=== PATIENT | female | born 1955 | race Caucasian/White ===

== ENCOUNTER → 2019-01-24 | Outpatient (CLI) | payer OTHER ==
[~2019-01-24] MED LIST: IBUP1TAB15 PO; MULT-1067 PO
--- NOTE | 2019-01-25 11:27 | RADIOLOGY IMAGING REPORT ---
[place]AC[place] [facility] [place] NAME: RENARD RAMOS : [id number] MR: [id number] V: [id number] EXAM DATE: ORDERING PHYSICIAN: KYLIE KAPLAN TECHNOLOGIST: Dana Salazar PROCEDURE:BILATERAL DIGITAL SCREENING MAMMOGRAM WITH CAD ASSISTED INTERPRETATION & 3D TOMOSYNTHESIS COMPARISON:Prior mammograms dated 05/19/17, 04/08/15 INDICATIONS:screening FINDINGS: The breasts are heterogeneously dense which can obscure small masses. The parenchymal pattern has remained stable when allowing for differences in mammographic technique & patient positioning. DIAGNOSTIC CATEGORY 1--NEGATIVE. RECOMMENDATIONS: ROUTINE MAMMOGRAM AND CLINICAL EVALUATION. IMPRESSION: BIRADS 1: Negative. No significant abnormality is seen. Dictated by: Tameka Blackmon M.D. on 01/24/2019 at 16:22 Transcribed by: TITO on 01/25/2019 at 9:37 Approved by: Tameka Blackmon M.D. on 01/25/2019 at 11:25 [facility]
== END ==
LOC: MAMO 08-02 01:38
PROVIDERS: ATTEND Physician Assistant
DX: Z12.31 Encounter for screening mammogram for malignant neoplasm of breast (principal); Z80.3 Family history of malignant neoplasm of breast
CPT/HCPCS: 77063; 77067

== ENCOUNTER 2019-04-18 00:16 | Day surgery (SDC) | payer OTHER ==
[~2019-04-18] VITALS: Ht 172.7 cm; Wt 73.9 kg
[2019-04-18 09:30] VITALS: BP 139/94
[2019-04-18] MEDS ORDERED: NORMOSOL R SOLN(*) 1000 ML BAG 1,000 ML IV PRN (09:40)
[2019-04-18] MEDS ORDERED: LIDOCAINE/SOD BICARB 8.4% SYR ID ONE (09:40)
[2019-04-18 11:30] VITALS: BP 109/60
[2019-04-18 11:56] VITALS: BP 111/74
[2019-04-18 11:58] VITALS: BP 117/77
[2019-04-18 12:02] VITALS: BP 110/66
[2019-04-18] MEDS ORDERED: PROPOFOL EMUL(*) 10MG/ML 20 ML 60 ML ONE (13:30)
== END 2019-04-18 12:13 | disposition home or self-care (01) ==
LOC: OR 00:16
PROVIDERS: ATTEND Family Medicine
DX: Z12.11 Encounter for screening for malignant neoplasm of colon (principal); D12.4 Benign neoplasm of descending colon; D12.5 Benign neoplasm of sigmoid colon; K63.5 Polyp of colon
CPT/HCPCS: 00811; 45385; 88305; J2704